=== PATIENT | female | born 1945 | race African-American/Black ===

== ENCOUNTER 2017-02-22 19:39 | Emergency (ER) | payer OTHER ==
[~2017-02-22] VITALS: Ht 157.5 cm; Wt 73.0 kg
[2017-02-23 03:05] VITALS: BP 139/86
== END 2017-02-23 03:05 | disposition home or self-care (01) ==
LOC: ER 19:40
DX: S09.90XA Unspecified injury of head, initial encounter (principal); E78.00 Pure hypercholesterolemia, unspecified; I10 Essential (primary) hypertension; Z90.710 Acquired absence of both cervix and uterus; Z86.73 Personal history of transient ischemic attack (TIA), and cerebral infarction without residual deficits; W06.XXXA Fall from bed, initial encounter; Y93.9 Activity, unspecified; Y92.89 Other specified places as the place of occurrence of the external cause; Y99.8 Other external cause status
CPT/HCPCS: 70450; 99284

== ENCOUNTER 2022-01-30 20:46 | Emergency (ER) | payer OTHER ==
[~2022-01-30] VITALS: Ht 157.5 cm; Wt 69.0 kg
[2022-01-30 21:00] VITALS: BP 174/94
[2022-01-30] MEDS ORDERED: DIPH25CA83 MT (23:03)
[2022-01-30] MEDS ORDERED: PERM60CR18 TP (23:03)
== END 2022-01-30 23:17 | disposition home or self-care (01) ==
LOC: ER 20:46
DX: B86 Scabies (principal); R21 Rash and other nonspecific skin eruption; E78.00 Pure hypercholesterolemia, unspecified; I10 Essential (primary) hypertension; Z86.73 Personal history of transient ischemic attack (TIA), and cerebral infarction without residual deficits; Z90.710 Acquired absence of both cervix and uterus
CPT/HCPCS: 99282

== ENCOUNTER 2024-01-03 10:40 | Emergency (ER) | payer OTHER ==
[~2024-01-03] VITALS: Ht 157.5 cm; Wt 64.9 kg
[~2024-01-03 10:40] MED LIST: DIPH25CA83 MT; PERM60CR18 TP
[2024-01-03 11:04] VITALS: O2SAT 100
[2024-01-03] MEDS: IBUPROFEN 400MG TABLET PO ONE (14:48)
[2024-01-03 14:58] VITALS: BP 148/72; PULSE 64; RESP 18; TEMP 98.2
== END 2024-01-03 15:00 | disposition home or self-care (01) ==
LOC: ER 10:40
DX: M25.561 Pain in right knee (principal); E11.9 Type 2 diabetes mellitus without complications; I10 Essential (primary) hypertension; Z86.73 Personal history of transient ischemic attack (TIA), and cerebral infarction without residual deficits; Z90.710 Acquired absence of both cervix and uterus; W18.30XA Fall on same level, unspecified, initial encounter; Y93.89 Activity, other specified; Y92.89 Other specified places as the place of occurrence of the external cause; Y99.8 Other external cause status
CPT/HCPCS: 73562; 99283

== ENCOUNTER 2025-01-15 14:50 | Emergency (ER) | payer OTHER ==
[~2025-01-15] VITALS: Ht 170.2 cm; Wt 63.0 kg
[2025-01-15 14:51] VITALS: O2SAT 95
[2025-01-15] MEDS: ACETAMINOPHEN 500MG TABLET PO ONE (15:47)
[2025-01-15] MEDS ORDERED: IBUP-2028 MT (16:55)
[2025-01-15 17:35] VITALS: BP 189/88; PULSE 61; RESP 18; TEMP 36.9; O2SAT 96
== END 2025-01-15 17:37 | disposition home or self-care (01) ==
LOC: ER 14:50
DX: M75.101 Unspecified rotator cuff tear or rupture of right shoulder, not specified as traumatic (principal); E78.00 Pure hypercholesterolemia, unspecified; I10 Essential (primary) hypertension; M85.80 Other specified disorders of bone density and structure, unspecified site; F10.90 Alcohol use, unspecified, uncomplicated; Z86.73 Personal history of transient ischemic attack (TIA), and cerebral infarction without residual deficits; Z90.710 Acquired absence of both cervix and uterus; Y90.9 Presence of alcohol in blood, level not specified
CPT/HCPCS: 73030; 73060; 73070; 99284; A4565

== ENCOUNTER 2025-02-28 11:43 | Emergency (ER) | payer OTHER ==
[~2025-02-28] VITALS: Ht 157.5 cm; Wt 60.0 kg
[~2025-02-28 11:43] MED LIST changes: +IBUP-2028 MT
[2025-02-28 12:01] VITALS: O2SAT 99
[2025-02-28] MEDS: AMLODIPINE 10MG TABLET PO ONE (16:14)
[2025-02-28] MEDS ORDERED: TOPUD MT (16:28)
[2025-02-28] MEDS ORDERED: IBUP-1523 MT (16:28)
[2025-02-28 16:50] VITALS: BP 169/90; PULSE 65; RESP 14; TEMP 36.9; O2SAT 99
== END 2025-02-28 16:53 | disposition home or self-care (01) ==
LOC: ER 11:43
DX: R51.9 Headache, unspecified (principal); E78.00 Pure hypercholesterolemia, unspecified; I10 Essential (primary) hypertension; Z98.890 Other specified postprocedural states; Z90.710 Acquired absence of both cervix and uterus; Z86.73 Personal history of transient ischemic attack (TIA), and cerebral infarction without residual deficits; W01.0XXA Fall on same level from slipping, tripping and stumbling without subsequent striking against object, initial encounter; Y93.89 Activity, other specified; Y92.89 Other specified places as the place of occurrence of the external cause; Y99.8 Other external cause status
CPT/HCPCS: 99284